=== PATIENT | male | born 1945 | race African-American/Black ===

== ENCOUNTER 2017-03-01 10:07 | Emergency (ER) | payer MEDICARE ==
[~2017-03-01] VITALS: Ht 170.2 cm; Wt 74.4 kg
[~2017-03-01 10:07] MED LIST: AMPI250C3 PO; ATOR40TA78 PO; CARV6.252 PO; GABA-826 PO; LISI2.5T PO; METF500T4 PO; OMEP-110 PO; SPIR25TA3 PO; WARF4TAB7 PO
[2017-03-01 11:19] VITALS: BP 110/67
== END 2017-03-01 11:21 | disposition home or self-care (01) ==
LOC: ED 11:15
DX: S39.012A Strain of muscle, fascia and tendon of lower back, initial encounter (principal); X50.1XXA Overexertion from prolonged static or awkward postures, initial encounter; Y93.89 Activity, other specified; Y92.89 Other specified places as the place of occurrence of the external cause; Y99.9 Unspecified external cause status
CPT/HCPCS: 72110; 99284

== ENCOUNTER 2018-08-07 18:15 | Inpatient (IN) | payer MEDICARE ==
[~2018-08-07] VITALS: Ht 170.2 cm; Wt 71.9 kg
[~2018-08-07 18:15] MED LIST changes: +METF500T17 PO; -METF500T4 PO; -SPIR25TA3 PO; +SPIR25TA5 PO; +WARF4TAB65 PO; -WARF4TAB7 PO
[2018-08-07 19:04] LABS: INTERNATIONAL NORMALIZED RATIO 3.52 (0.93-1.1); PROTHROMBIN TIME 35.2 Seconds (9.6-11.5)
[2018-08-07 19:05] LABS: ALANINE AMINOTRANSFERASE 38 U/L (12-78); ALBUMIN 4.2 g/dL (3.4-5.0); ANION GAP 4 mmol/L (5-15); CALCIUM 9.4 mg/dL (8.5-10.1); CHLORIDE 96 mmol/L (98-107); CREATININE 1.23 mg/dL (0.7-1.3)
[2018-08-07 19:07] LABS: ALKALINE PHOSPHATASE 87 U/L (45-117); TOTAL PROTEIN 8.7 g/dL (6.4-8.2)
[2018-08-07 19:11] LABS: BASOPHILS # (AUTO) 0.04 x10^3/uL (0-0.1); BASOPHILS % (AUTO) 1 % (0-1); EOSINOPHILS # (AUTO) 0.13 x10^3/uL (0-0.4); EOSINOPHILS % (AUTO) 2 % (1-7); LYMPHOCYTES # (AUTO) 0.53 x10^3/uL (1-3.4); LYMPHOCYTES % (AUTO) 9 % (22-44); MD NO; MEAN CORPUSCULAR HEMOGLOBIN 32.3 pg (27.5-34.5); MEAN CORPUSCULAR HGB CONC 33.6 g/dL (33.2-36.2); MEAN CORPUSCULAR VOLUME 96.2 fL (81-97); MEAN PLATELET VOLUME 7.5 fL (7.4-10.4); MONOCYTES # (AUTO) 0.86 x10^3/uL (0.2-0.8); MONOCYTES % (AUTO) 14 % (2-9); NEUTROPHILS # (AUTO) 4.56 x10^3/uL (1.8-6.8); NEUTROPHILS % (AUTO) 75 % (42-75); PLATELET COUNT 187 x10^3/uL (130-400); RED CELL DISTRIBUTION WIDTH 14.3 % (9.4-14.8)
--- NOTE | 2018-08-07 20:11 | NUR ---
ASSUMED CARE FOR THIS PT. IV PLACED FOR CT WITH CONTRAST. PT AWAITING LAB WORK AND THEN WILL GO TO CT SCAN. AT BEDSIDE PT IN NO DISTRESS.
--- NOTE | 2018-08-07 20:34 | NUR ---
need iv for CT
--- NOTE | 2018-08-07 20:47 | NUR ---
PT WITH BP OF 72/P ERP AWARE. PT WITH IVF RUNNING ORDERED.
[2018-08-07] MEDS ORDERED: SODIUM CHLORIDE 0.9% 1,000ML IVBOLUS ONE (21:00)
[2018-08-07] MEDS ORDERED: SODIUM CHLORIDE FLUSH 10ML SYR IVF ONE (21:00)
[2018-08-07] MEDS ORDERED: ASPI-496 PO (21:19)
[2018-08-07 21:57] VITALS: BP 110/77
[2018-08-07] MEDS ORDERED: OMNIPAQUE 350 MG/ML, 100ML BOTTLE ONE (22:25)
[2018-08-08] MEDS ORDERED: ENOXAPARIN 40 MG/0.4 ML SQ SCH
[2018-08-08] MEDS ORDERED: ONDANSETRON ODT 4 MG PO PRN
[2018-08-08] MEDS ORDERED: ENALAPRILAT 1.25 MG/ML, 2ML IVPush PRN
[2018-08-08] MEDS ORDERED: ONDANSETRON 2MG/ML, 2ML IVPush PRN
[2018-08-08] MEDS ORDERED: DOCUSATE 100 MG CAPSULE PO PRN
[2018-08-08] MEDS ORDERED: OXYcodone IR 5MG TABLET PO PRN
[2018-08-08] MEDS ORDERED: LABETALOL 20 MG/4 ML IVPush PRN
[2018-08-08] MEDS ORDERED: BISACODYL 10 MG SUPP PR PRN
[2018-08-08] MEDS ORDERED: POLYETHYLENE GLYCOL 17 GM PACKET PO PRN
[2018-08-08] MEDS ORDERED: ACETAMINOPHEN 325 MG TABLET PO PRN
[2018-08-08] MEDS: SODIUM CHLORIDE 0.9% 1,000 ML IV SCH ×2 (00:41→08:21)
[2018-08-08 01:06] VITALS: BP 71/53
[2018-08-08 02:04] VITALS: BP 63/38
[2018-08-08] MEDS ORDERED: SODIUM CHLORIDE 0.9% 1,000ML IVBOLUS ONE (02:30)
[2018-08-08] MEDS ORDERED: TEMPLATE NON-FORMULARY MED. (Warfarin Sodium** 4 MG) PO SCH (04:00)
[2018-08-08] MEDS ORDERED: SODIUM CHLORIDE 0.9%, 500ML IVBOLUS ONE (04:30)
[2018-08-08 04:45] LABS: CULTURE INDICATED? YES; MICROSCOPIC INDICATED
[2018-08-08 05:28] LABS: ANION GAP 4 mmol/L (5-15); CALCIUM 7.7 mg/dL (8.5-10.1); CHLORIDE 108 mmol/L (98-107)
[2018-08-08 05:29] VITALS: BP 81/40
[2018-08-08 05:29] LABS: CREATININE 0.73 mg/dL (0.7-1.3)
[2018-08-08] MEDS ORDERED: CEFTRIAXONE PMX 1GM/50ML 50 ML IV SCH (05:30)
[2018-08-08 05:43] LABS: BASOPHILS # (AUTO) 0.02 x10^3/uL (0-0.1); BASOPHILS % (AUTO) 1 % (0-1); EOSINOPHILS # (AUTO) 0.05 x10^3/uL (0-0.4); EOSINOPHILS % (AUTO) 2 % (1-7); LYMPHOCYTES # (AUTO) 0.61 x10^3/uL (1-3.4); LYMPHOCYTES % (AUTO) 19 % (22-44); MD NO; MEAN CORPUSCULAR HEMOGLOBIN 32.7 pg (27.5-34.5); MEAN CORPUSCULAR HGB CONC 34.3 g/dL (33.2-36.2); MEAN CORPUSCULAR VOLUME 95.4 fL (81-97); MEAN PLATELET VOLUME 7.8 fL (7.4-10.4); MONOCYTES # (AUTO) 0.59 x10^3/uL (0.2-0.8); MONOCYTES % (AUTO) 19 % (2-9); NEUTROPHILS % (AUTO) 60 % (42-75); PLATELET COUNT 137 x10^3/uL (130-400); RED BLOOD COUNT 3.83 x10^6/uL (4.38-5.82); RED CELL DISTRIBUTION WIDTH 14.3 % (9.4-14.8)
[2018-08-08] MEDS ORDERED: VANCOMYCIN PER PHARMACY MC PRN (06:00)
[2018-08-08] MEDS ORDERED: PIPERACILLIN/TAZO/PMX 4.5GM 100 ML IVPB SCH (06:00)
[2018-08-08 06:15] LABS: HEMOGLOBIN A1C 6.7 % (4.2-6.3)
[2018-08-08] MEDS ORDERED: PHARMACOKINETIC MONITORING MC PRN (06:30)
[2018-08-08] MEDS ORDERED: LACTATED RINGERS 1,000 ML IVBOLUS ONE (06:30)
[2018-08-08] MEDS: MEROPENEM 1 GM in SODIUM CHLORIDE 0.9% 100 ML IV SCH ×3 (06:52→23:41)
[2018-08-08] MEDS: VANCOMYCIN 1,300 MG in SODIUM CHLORIDE 0.9% 250 ML IV SCH (07:40)
[2018-08-08] MEDS: CARVEDILOL 6.25 MG TABLET PO SCH ×2 (07:41→20:31)
[2018-08-08] MEDS: ASPIRIN 81 MG TABLET EC PO SCH (08:20)
[2018-08-08 08:48] LABS: FIO2 RA %
[2018-08-08] MEDS ORDERED: AMPICILLIN 500MG CAPSULE PO SCH (09:00)
[2018-08-08] MEDS ORDERED: AMPICILLIN 250MG CAPSULE PO SCH (09:00)
[2018-08-08] MEDS ORDERED: SPIRONOLACTONE 25 MG TABLET PO SCH (09:00)
[2018-08-08] MEDS ORDERED: HOLD COUMADIN MC PRN (10:00)
[2018-08-08] MEDS ORDERED: WARFARIN 2 MG TABLET PO-COUM SCH (18:00)
[2018-08-08] MEDS ORDERED: SODIUM CHLORIDE 0.9% 1,000 ML IV SCH (23:37)
[2018-08-09] MEDS ORDERED: SODIUM CHLORIDE 0.9% 1,000ML IVBOLUS ONE
[2018-08-09 04:30] LABS: BASOPHILS # (AUTO) 0.02 x10^3/uL (0-0.1); BASOPHILS % (AUTO) 1 % (0-1); EOSINOPHILS # (AUTO) 0.14 x10^3/uL (0-0.4); EOSINOPHILS % (AUTO) 4 % (1-7); LYMPHOCYTES # (AUTO) 0.67 x10^3/uL (1-3.4); LYMPHOCYTES % (AUTO) 18 % (22-44); MD NO; MEAN CORPUSCULAR HEMOGLOBIN 32.6 pg (27.5-34.5); MEAN CORPUSCULAR HGB CONC 33.9 g/dL (33.2-36.2); MEAN CORPUSCULAR VOLUME 95.9 fL (81-97); MEAN PLATELET VOLUME 7.4 fL (7.4-10.4); MONOCYTES # (AUTO) 0.49 x10^3/uL (0.2-0.8); MONOCYTES % (AUTO) 13 % (2-9); NEUTROPHILS # (AUTO) 2.47 x10^3/uL (1.8-6.8); NEUTROPHILS % (AUTO) 65 % (42-75); PLATELET COUNT 141 x10^3/uL (130-400); RED BLOOD COUNT 4.14 x10^6/uL (4.38-5.82); RED CELL DISTRIBUTION WIDTH 14.2 % (9.4-14.8)
[2018-08-09 04:39] LABS: ALANINE AMINOTRANSFERASE 25 U/L (12-78); ALBUMIN 2.7 g/dL (3.4-5.0); ANION GAP 7 mmol/L (5-15); CALCIUM 7.6 mg/dL (8.5-10.1); CHLORIDE 107 mmol/L (98-107); CREATININE 0.58 mg/dL (0.7-1.3)
[2018-08-09 04:42] LABS: ALKALINE PHOSPHATASE 58 U/L (45-117); BILIRUBIN,TOTAL 1.4 mg/dL (0.2-1.0); TOTAL PROTEIN 5.9 g/dL (6.4-8.2)
[2018-08-09 05:35] VITALS: BP 88/62
[2018-08-09] MEDS: CARVEDILOL 6.25 MG TABLET PO SCH ×2 (07:46→20:48)
[2018-08-09] MEDS: ASPIRIN 81 MG TABLET EC PO SCH (07:46)
[2018-08-09] MEDS: MEROPENEM 1 GM in SODIUM CHLORIDE 0.9% 100 ML IV SCH ×2 (07:46→17:10)
[2018-08-09 08:09] LABS: INTERNATIONAL NORMALIZED RATIO 2.17 (0.93-1.1); PROTHROMBIN TIME 22.1 Seconds (9.6-11.5)
[2018-08-09] MEDS: VANCOMYCIN 1,300 MG in SODIUM CHLORIDE 0.9% 250 ML IV SCH (08:20)
[2018-08-09 16:19] VITALS: BP 102/68
[2018-08-09] MEDS ORDERED: WARFARIN 2 MG TABLET PO-COUM ONE (18:00)
[2018-08-09 20:26] VITALS: BP 118/78
[2018-08-10 01:01] VITALS: BP 107/67
[2018-08-10] MEDS: MEROPENEM 1 GM in SODIUM CHLORIDE 0.9% 100 ML IV SCH ×2 (02:09→11:36)
[2018-08-10 04:05] VITALS: BP 173/98
[2018-08-10 05:26] LABS: BASOPHILS # (AUTO) 0.06 x10^3/uL (0-0.1); BASOPHILS % (AUTO) 1 % (0-1); EOSINOPHILS # (AUTO) 0.22 x10^3/uL (0-0.4); EOSINOPHILS % (AUTO) 5 % (1-7); LYMPHOCYTES % (AUTO) 16 % (22-44); MD NO; MEAN CORPUSCULAR HEMOGLOBIN 32.4 pg (27.5-34.5); MEAN CORPUSCULAR HGB CONC 33.8 g/dL (33.2-36.2); MEAN CORPUSCULAR VOLUME 95.8 fL (81-97); MEAN PLATELET VOLUME 7.9 fL (7.4-10.4); MONOCYTES # (AUTO) 0.59 x10^3/uL (0.2-0.8); MONOCYTES % (AUTO) 14 % (2-9); NEUTROPHILS % (AUTO) 64 % (42-75); PLATELET COUNT 142 x10^3/uL (130-400); RED BLOOD COUNT 4.12 x10^6/uL (4.38-5.82); RED CELL DISTRIBUTION WIDTH 14.4 % (9.4-14.8)
[2018-08-10 05:32] LABS: INTERNATIONAL NORMALIZED RATIO 2.1 (0.93-1.1); PROTHROMBIN TIME 21.4 Seconds (9.6-11.5)
[2018-08-10 05:36] LABS: ANION GAP 5 mmol/L (5-15); CALCIUM 8.1 mg/dL (8.5-10.1); CHLORIDE 106 mmol/L (98-107)
[2018-08-10 05:37] LABS: CREATININE 0.56 mg/dL (0.7-1.3)
[2018-08-10 07:18] VITALS: BP 98/63
[2018-08-10] MEDS ORDERED: VANCOMYCIN 1,300 MG in SODIUM CHLORIDE 0.9% 250 ML IV SCH (08:30)
[2018-08-10] MEDS: CARVEDILOL 6.25 MG TABLET PO SCH ×2 (08:43→19:53)
[2018-08-10] MEDS: ASPIRIN 81 MG TABLET EC PO SCH (08:43)
[2018-08-10 12:03] VITALS: BP 90/61
[2018-08-10] MEDS: CEFTRIAXONE PMX 1GM/50ML 50 ML IV SCH (14:02)
[2018-08-10] MEDS ORDERED: WARFARIN 2 MG TABLET PO-COUM ONE (18:00)
[2018-08-10 19:52] VITALS: BP 99/60
[2018-08-10 20:12] VITALS: BP 111/62
[2018-08-11 01:55] VITALS: BP 91/58
[2018-08-11 06:15] LABS: BASOPHILS # (AUTO) 0.04 x10^3/uL (0-0.1); BASOPHILS % (AUTO) 1 % (0-1); EOSINOPHILS # (AUTO) 0.19 x10^3/uL (0-0.4); EOSINOPHILS % (AUTO) 5 % (1-7); LYMPHOCYTES # (AUTO) 0.78 x10^3/uL (1-3.4); LYMPHOCYTES % (AUTO) 18 % (22-44); MD NO; MEAN CORPUSCULAR HEMOGLOBIN 32.8 pg (27.5-34.5); MEAN CORPUSCULAR HGB CONC 34.2 g/dL (33.2-36.2); MEAN PLATELET VOLUME 7.9 fL (7.4-10.4); MONOCYTES # (AUTO) 0.71 x10^3/uL (0.2-0.8); MONOCYTES % (AUTO) 16 % (2-9); NEUTROPHILS # (AUTO) 2.59 x10^3/uL (1.8-6.8); NEUTROPHILS % (AUTO) 60 % (42-75); PLATELET COUNT 139 x10^3/uL (130-400); RED CELL DISTRIBUTION WIDTH 14.3 % (9.4-14.8)
[2018-08-11 06:19] LABS: INTERNATIONAL NORMALIZED RATIO 1.81 (0.93-1.1); PROTHROMBIN TIME 18.6 Seconds (9.6-11.5)
[2018-08-11 06:20] LABS: CALCIUM 8.1 mg/dL (8.5-10.1); CREATININE 0.63 mg/dL (0.7-1.3)
[2018-08-11 06:27] LABS: ANION GAP 5 mmol/L (5-15); CHLORIDE 107 mmol/L (98-107)
[2018-08-11 07:43] VITALS: BP 111/76
[2018-08-11 09:34] VITALS: BP 95/67
[2018-08-11] MEDS: ASPIRIN 81 MG TABLET EC PO SCH (09:37)
[2018-08-11] MEDS: CARVEDILOL 6.25 MG TABLET PO SCH ×2 (09:45→21:00)
[2018-08-11 13:01] VITALS: BP 90/55
[2018-08-11] MEDS: CEFTRIAXONE PMX 1GM/50ML 50 ML IV SCH (13:52)
[2018-08-11] MEDS ORDERED: WARFARIN 3 MG TABLET PO-COUM ONE (18:00)
[2018-08-11 20:16] VITALS: BP 90/56
[2018-08-12 01:12] VITALS: BP 98/65
[2018-08-12 05:33] LABS: INTERNATIONAL NORMALIZED RATIO 1.74 (0.93-1.1); PROTHROMBIN TIME 17.9 Seconds (9.6-11.5)
[2018-08-12 07:32] VITALS: BP 96/64
[2018-08-12 09:00] VITALS: BP 89/55
[2018-08-12] MEDS: CARVEDILOL 6.25 MG TABLET PO SCH (09:00)
[2018-08-12] MEDS ORDERED: TAMSULOSIN 0.4 MG CAP.ER.24H PO SCH (09:00)
[2018-08-12] MEDS ORDERED: FINASTERIDE 5 MG TABLET PO SCH (09:00)
[2018-08-12] MEDS: ASPIRIN 81 MG TABLET EC PO SCH (09:00)
[2018-08-12] MEDS ORDERED: TAMS-11 PO (12:03)
[2018-08-12] MEDS ORDERED: FINA5TAB4 PO (12:03)
[2018-08-12] MEDS ORDERED: CEFD300C37 PO (12:03)
[2018-08-12 12:49] VITALS: BP 98/64
[2018-08-12] MEDS: CEFTRIAXONE PMX 1GM/50ML 50 ML IV SCH (14:17)
[2018-08-12] MEDS ORDERED: WARFARIN 3 MG TABLET PO-COUM ONE (18:00)
== END 2018-08-12 18:29 | disposition home health service (06) | DRG 871 ==
LOC: ED 20:18 → EDIP 20:23 → ED 20:49 → 4NOR 21:30 → CCU 08-08 06:27 → 3NE 08-09 16:09
PROVIDERS: ADMIT Internal Medicine; ATTEND Internal Medicine
PROC: 0T9B80Z Drainage of Bladder with Drainage Device, Via Natural or Artificial Opening Endoscopic (ICD-10-PCS; principal; 2018-08-12)
DX: A41.9 Sepsis, unspecified organism (principal); K85.90 Acute pancreatitis without necrosis or infection, unspecified; R57.1 Hypovolemic shock; N17.0 Acute kidney failure with tubular necrosis; E46 Unspecified protein-calorie malnutrition; E87.1 Hypo-osmolality and hyponatremia; M48.56XA Collapsed vertebra, not elsewhere classified, lumbar region, initial encounter for fracture; N39.0 Urinary tract infection, site not specified; N13.8 Other obstructive and reflux uropathy; Z79.84 Long term (current) use of oral hypoglycemic drugs; B96.1 Klebsiella pneumoniae [K. pneumoniae] as the cause of diseases classified elsewhere; E11.9 Type 2 diabetes mellitus without complications; E78.5 Hyperlipidemia, unspecified; F02.80 Dementia in other diseases classified elsewhere, unspecified severity, without behavioral disturbance, psychotic disturbance, mood disturbance, and anxiety; G30.9 Alzheimer's disease, unspecified; I11.0 Hypertensive heart disease with heart failure; I27.20 Pulmonary hypertension, unspecified; I48.2 Chronic atrial fibrillation; I50.82 Biventricular heart failure; K76.0 Fatty (change of) liver, not elsewhere classified; N28.1 Cyst of kidney, acquired; N40.1 Benign prostatic hyperplasia with lower urinary tract symptoms; R33.8 Other retention of urine; Z79.01 Long term (current) use of anticoagulants; Z95.0 Presence of cardiac pacemaker; Z95.2 Presence of prosthetic heart valve; Z68.24 Body mass index [BMI] 24.0-24.9, adult
CPT/HCPCS: 36415; 36600; 71045; 74022; 74177; 76700; 80048; 80053; 80202; 81001; 82140; 82150; 82533; 82803; 83036; 83605; 83690; 84443; 85025; 85610; 87040; 87077; 87081; 87086; 87186; 99285; G0378; J0696; J1650; J2185; J3370; Q9967; J7030; J7040; J7050; J7120

== ENCOUNTER 2019-03-07 03:00 | Emergency (ER) | payer MEDICARE ==
[~2019-03-07] VITALS: Ht 170.2 cm; Wt 69.6 kg
[~2019-03-07 03:00] MED LIST changes: +ASPI-496 PO; +CEFD300C37 PO; +FINA5TAB4 PO; +TAMS-11 PO
[2019-03-07 05:06] LABS: MICROSCOPIC INDICATED
[2019-03-07 05:07] LABS: CULTURE INDICATED? YES
[2019-03-07 05:22] VITALS: BP 112/75
== END 2019-03-07 05:55 | disposition home or self-care (01) ==
LOC: ED 05:45
DX: T83.511A Infection and inflammatory reaction due to indwelling urethral catheter, initial encounter (principal); E78.5 Hyperlipidemia, unspecified; I25.2 Old myocardial infarction; I25.10 Atherosclerotic heart disease of native coronary artery without angina pectoris; E11.9 Type 2 diabetes mellitus without complications; I10 Essential (primary) hypertension
CPT/HCPCS: 51702; 81001; 87086; 87106; 99284

== ENCOUNTER 2019-11-16 08:04 | Emergency (ER) | payer MEDICARE ==
[~2019-11-16] VITALS: Ht 170.2 cm; Wt 62.0 kg
[~2019-11-16 08:04] MED LIST changes: +AMPI500C2 PO; +DONE10TA14 PO; +FURO20TA3 PO; +Sulfameth./Trimethoprim Ds PO
[2019-11-16 08:07] VITALS: BP 107/73
--- NOTE | 2019-11-16 08:59 | NUR ---
PT RESTING IN BED, LAB AT BEDSIDE. [facility] CALLED FOR DELIVERY OF APPROPRIATE STINSON. PT DENIES ANY NEEDS, CALL LIGHT IN REACH.
[2019-11-16 09:21] LABS: MEAN CORPUSCULAR HEMOGLOBIN 32.7 pg (27.5-34.5); MEAN CORPUSCULAR VOLUME 99.4 fL (81-97); MEAN PLATELET VOLUME 7.7 fL (7.4-10.4); PLATELET COUNT 274 x10^3/uL (130-400); RED BLOOD COUNT 4.31 x10^6/uL (4.38-5.82); RED CELL DISTRIBUTION WIDTH 16.9 % (9.4-14.8)
--- NOTE | 2019-11-16 09:53 | NUR ---
BREAK RN FOR PRIMARY RN MALU, CRITICAL VALUES RECEIVED CHARTED, DISCUSSED WITH DR. CURRY, AWARE. NO NEW ORDERS RECEIVED AT THIS TIME. VSS. PULSE OX 95% RA. DENIES ANY PAIN. STINSON CATH IN PLACE BY MALU RN, DRAINGING PROPERLY. CALL LIGHT IN REACH. FALL PRECAUTIONS IN PLACE.
[2019-11-16 09:56] LABS: PROTHROMBIN TIME 74.3 Seconds (9.6-11.5)
[2019-11-16 09:57] LABS: INTERNATIONAL NORMALIZED RATIO 6.87 (0.93-1.1)
[2019-11-16 09:59] LABS: MD YES
[2019-11-16 10:03] LABS: BAND#(MANUAL) 0.03 x10^3/uL; BANDS%(MANUAL) 1 % (0-7); BASOS#(MANUAL) 0.05 x10^3/uL (0-0.1); BASOS% (MANUAL) 2 % (0-1); EOS#(MANUAL) 0.03 x10^3/uL (0.0-0.4); EOS% (MANUAL) 1 % (1-7); LYMPH#(MANUAL) 0.32 x10^3/uL (1-3.4); LYMPHS% (MANUAL) 12 % (22-44); MONOS#(MANUAL) 0.65 x10^3/uL (0.3-2.7); MONOS% (MANUAL) 24 % (2-9); NRBC % (MANUAL) 1 % (0-1); SEG#(MANUAL) 1.62 x10^3/uL (1.8-6.8); SEGS% (MANUAL) 60 % (42-75)
--- NOTE | 2019-11-16 10:04 | NUR ---
[facility], - HOME [phone] - [facility] [phone]
--- NOTE | 2019-11-16 10:05 | NUR ---
LATE ENTRY: UPDATED ON PATIENT STATUS INCLUDING LIKELIHOOD OF IMPENDING DISCHARGE. EXPRESSES UNDERSTANDING. DENIES FURTHER QUESTIONS.
--- NOTE | 2019-11-16 10:06 | NUR ---
REPORT AND TRANSFER OF CARE BACK TO PRIMARY RN MALU AT THIS TIME
[2019-11-16 10:20] LABS: <PLATELET ESTIMATE> ADEQUATE; <PLT MORPHOLOGY> NORMAL PLT MORPH; ANISOCYTOSIS 1+
[2019-11-16] MEDS ORDERED: PHYTONADIONE 5 MG TABLET PO ONE (10:30)
--- NOTE | 2019-11-16 12:00 | NUR ---
LATE ENTRY: PT WAS PROVIDED WITH A TAXICAB VOUCHER TO HOME AT [address] [place] [address]. DISCHARGE DESK STAFF AWARE OF NEED TO ENSURE PT MAKES IT TO TAXI.
--- NOTE | 2019-11-16 15:21 | NUR ---
CALLED THIS NURSE, STATES THAT SHE IS NOT AT HOME AND WAS NOT THERE WHEN PATIENT WAS DROPPED OFF. WENT HOME AND CALLED THIS NURSE BACK TO NOTIFY THAT PATIENT IS NOT SEEN AT HOME RESIDENCE. CHARGE NURSE AWARE. [employer] CALLED 3 TIMES SO FAR, NO ANSWER TO ANY CALLS.
--- NOTE | 2019-11-16 16:00 | NUR ---
[employer] CALLED, STATE THAT THEY WERE CALLED TO THE HOSPITAL FOR PATIENT BUT THAT HE WAS A NO CALL NO SHOW TO THE CAB. MEDICAL SCRIBE NOTES THAT DESPITE BEING TOLD TO PLACE PATIENT DIRECTLY IN THE CAB, PT WAS SEEN WALKING OUT OF THE HOSPITAL PRIOR TO THE CABS ARRIVAL. SECURITY ALERTED OF PATIENT SITUATION. HOSPITAL GROUNDS CHECKED FOR PATIENT PRESENCE, NOT FOUND AT THIS TIME. [employer] CALLED AND NOTIFIED OF PATIENT SITUATION. PROVIDED WITH DESCRIPTION, HOME ADDRESS, AND WIFES NAME AND NUMBER. CALLED AND UPDATED ON PATIENT SITUATION. VERBALIZES UNDERSTANDING, DENIES ANY FURTHER NEEDS AT THIS TIME.
== END 2019-11-16 12:14 | disposition home or self-care (01) ==
LOC: ED 09:09
DX: T83.098D Other mechanical complication of other urinary catheter, subsequent encounter (principal); Z79.01 Long term (current) use of anticoagulants; E11.9 Type 2 diabetes mellitus without complications; I10 Essential (primary) hypertension; I25.10 Atherosclerotic heart disease of native coronary artery without angina pectoris; E78.5 Hyperlipidemia, unspecified; I25.2 Old myocardial infarction; Z95.0 Presence of cardiac pacemaker; Z95.4 Presence of other heart-valve replacement
CPT/HCPCS: 36415; 51702; 85025; 85610; 99284

== ENCOUNTER 2019-11-22 11:39 | Emergency (ER) | payer MEDICARE ==
[~2019-11-22] VITALS: Ht 175.3 cm; Wt 67.4 kg
[2019-11-22 11:40] VITALS: BP 99/62
--- NOTE | 2019-11-22 11:49 | NUR ---
TASK RN: JUANCARLOS ROA. PT HAS HX DEMENTIA AND WAS WANDERING OUTSIDE OF HOME IN [facility] AND WAS FOUND BY [employer] IN [facility]. 911 WAS CALLED PT WAS DEFECATING ON SIDEWALK. PT STATES HE WALKED FROM [facility] TO [facility]. PER BRING HIM TO [facility] TO BE EVALUATED. VS PUBLICITY EXPERT BS 111, HR 93, BP 106/89, 97% RA. DENIES FOOT PAIN. FULL ROM.
--- NOTE | 2019-11-22 11:53 | NUR ---
TASK RN: PT PROVIDED W/ WATER. NO ISSUES W/ PO FLUIDS. DIET TRAY ORDERED.
--- NOTE | 2019-11-22 11:59 | NUR ---
TASK RN: REPORT GIVEN TO NICOLE PRIMARY RN.
--- NOTE | 2019-11-22 12:32 | NUR ---
PT DID NOT HAVE STINSON LEG BAG. WANTED A LEG BAG FOR DC. LEG BAG PROVIDED. PER ERP DR. MOORE NO NEED TO CHANGE OUT STINSON COMPLETELY, JUST GIVE NEW BAG.
== END 2019-11-22 12:34 | disposition home or self-care (01) ==
LOC: ED 12:24
DX: F03.90 Unspecified dementia, unspecified severity, without behavioral disturbance, psychotic disturbance, mood disturbance, and anxiety (principal); I10 Essential (primary) hypertension; E11.9 Type 2 diabetes mellitus without complications
CPT/HCPCS: 99283